=== PATIENT | male | born 1990 | race African-American/Black ===

== ENCOUNTER → 2021-01-18 | Outpatient (CLI) | payer OTHER ==
--- NOTE | 2021-01-18 10:02 | RAD ---
EXAM: Lumbar spine, 2 views. HISTORY: Raynaud's disease. Pain. COMPARISON: None. FINDINGS: 2 views of the lumbar spine are obtained. There is no listhesis. The vertebral bodies are n ormal in height and the disc spaces are preserved. There is mild lumbar dextrocurvature which is like ly positional. 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 IMPRESSION: No acute osseous finding. Electronically signed by: Mai Rodriguez MD (01/18/2021 9:59 AM) [id number]
== END ==
LOC: RAD 09:06
PROVIDERS: ATTEND Family Medicine
DX: M45.6 Ankylosing spondylitis lumbar region (principal); I73.00 Raynaud's syndrome without gangrene
CPT/HCPCS: 72100